=== PATIENT | female | born 1990 | race Caucasian/White ===

== ENCOUNTER 2018-11-17 12:14 | Emergency (ER) | payer OTHER ==
[~2018-11-17] VITALS: Ht 160 cm; Wt 77.1 kg
[~2018-11-17 12:14] MED LIST: LEXAPRO 10 MG T10 MG PO; TRAZODONE HCL50 MG; birth control
[2018-11-17] MEDS ORDERED: NORCO 5-325 TA1 EAC1 PO (13:05)
[2018-11-17] MEDS ORDERED: AUGMENTIN 875-1 EACH PO (13:05)
[2018-11-17 13:54] VITALS: BP 117/79
== END 2018-11-17 13:55 | disposition home or self-care (01) ==
LOC: M.ERS 12:14
DX: S61.215A Laceration without foreign body of left ring finger without damage to nail, initial encounter (principal); F41.0 Panic disorder [episodic paroxysmal anxiety]; F17.210 Nicotine dependence, cigarettes, uncomplicated; Z88.1 Allergy status to other antibiotic agents; Z88.2 Allergy status to sulfonamides; W54.0XXA Bitten by dog, initial encounter; Y93.89 Activity, other specified; Y92.89 Other specified places as the place of occurrence of the external cause; Y99.8 Other external cause status